=== PATIENT | female | born 1965 | race Caucasian/White ===

== ENCOUNTER 2024-05-08 06:38 | Observation (INO) ==
--- NOTE | 2024-04-10 11:16 | PAT Medication Instructions ---
Medication Instructions Date of Service April 10, 2024 Home Medications acetaminophen 500 mg tablet 500 mg PO Q6H PRN Pain acetaminophen 650 mg tablet,extended release 650 mg PO Q12H PRN Pain baclofen 10 mg tablet 10 mg PO TID PRN muscle spasms estradiol 1 mg tablet 0.25 mg PO QPM famotidine 20 mg tablet 20 mg PO HS omeprazole 20 mg tablet,delayed release 20 mg PO QAM tizanidine 2 mg tablet 2 mg PO HS MEDICATION INSTRUCTIONS: ASK your surgeon for instructions estradiol 1 mg tablet 0.25 mg PO QPM Take morning of surgery With a small sip of water, OTHERWISE NOTHING TO EAT OR DRINK AFTER MIDNIGHT: acetaminophen 500 mg tablet 500 mg PO Q6H PRN Pain acetaminophen 650 mg tablet,extended release 650 mg PO Q12H PRN Pain baclofen 10 mg tablet 10 mg PO TID PRN muscle spasms omeprazole 20 mg tablet,delayed release 20 mg PO QAM Take evening before surgery acetaminophen 500 mg tablet 500 mg PO Q6H PRN Pain acetaminophen 650 mg tablet,extended release 650 mg PO Q12H PRN Pain baclofen 10 mg tablet 10 mg PO TID PRN muscle spasms famotidine 20 mg tablet 20 mg PO HS tizanidine 2 mg tablet 2 mg PO HS Other Notes If you have any questions please call us at [phone] or [phone] or [phone] or [phone]
--- NOTE | 2024-04-24 11:24 | Anesthesiology Consultation ---
Date of Service April 24, 2024 Assessment & Plan (1) Encounter for pre-operative examination: - Check BSG DOS (Hx intermittent episodes of hypoglycemia, diet controlled, episodes occur when fasting- OR made aware. Will recheck BSG level DOS) - Infectious disease screening: Per assessment on 04/24/24- No known recent infectious disease contacts or current infectious disease symptoms. - Cardiology note (03/27/24): "Low cardiac risk.. From a primary care standpoint, okay to proceed with surgery per surgeon protocol" - Cardiology visit (04/05/24): "pt had testing approximately 1 1/2 Years ago and no severe cardiac disease found. Will clear her at low cardiac risk for upcoming neck surgery. pt is a former smoker and has had polyps removed from vocal chords [sic]" - PCP note/visit (04/19/24): "Patient is cleared for scheduled surgery" Chart Review Chart Review: Acceptable Risk for Surgery and Patient seen in Pre Admission Testing Teaching & Discussion Pre-Anesthesia Teaching/Discussion Notes: Instructed NPO after midnight before surgery,except medications with 15 cc of water. Medication instructions provided according to the PAT guidelines. History Surgery Operation Date: 05/08/24 07:45 Proposed Procedures p C5-C7 Anterior Cervical Discectomy and Fusion Spinal Cord Monitoring - Edgar Chacon, Height/Weight Height: 5 ft 1 in Weight: 64.5 kg Allergies Allergy/AdvReac Type Severity Reaction Status Date / Time No Known Allergies Allergy Verified 04/05/24 15:00 Medications Home Medications Medication Instructions Recorded Confirmed Last Taken acetaminophen 500 mg tablet 500 mg PO Q6H PRN Pain 04/05/24 04/05/24 Unknown acetaminophen 650 mg 650 mg PO Q12H PRN Pain 04/05/24 04/05/24 Unknown tablet,extended release baclofen 10 mg tablet 10 mg PO TID PRN muscle spasms 04/05/24 04/05/24 Unknown estradiol 1 mg tablet 0.25 mg PO QPM 04/05/24 04/05/24 Unknown famotidine 20 mg tablet 20 mg PO HS 04/05/24 04/05/24 Unknown omeprazole 20 mg tablet,delayed 20 mg PO QAM 04/05/24 04/05/24 Unknown release tizanidine 2 mg tablet 2 mg PO HS 04/05/24 04/05/24 Unknown Past Medical History Medical History Anxiety and depression Arthritis Escalante's esophagus GERD (gastroesophageal reflux disease) Hiatal hernia History of hypoglycemia Hx intermittent episodes of hypoglycemia Diet controlled, episodes occur when fasting Hx of cancer of uterus Dx 2000 > SHIMA w/BSO Hx of cervical cancer Dx 2000 > SHIMA w/BSO Exercise / Class Metabolic Activity II 4-5 Yardwork/Stairs/Walk up hill Past Surgical History Surgical History History of bilateral tubal ligation History of carpal tunnel surgery of right wrist 01/18/24 History of esophagogastroduodenoscopy (EGD) 01/2024 History of vocal cord polypectomy Hx of colonoscopy Hx of LASIK Hx of total vaginal hysterectomy w/BSO Past Anesthesia History No Family Hx of Anesthesia Complications and Other (Awareness with remote D&C) History of PONV No Hx of PONV and No Hx of Motion Sickness Social History Smoking Status: Former smoker Do You Dip or Chew Tobacco: No Smoking End Date: Quit 1991 Hx Alcohol Use: No Hx Substance Use: Yes substance use type: marijuana (Troches/lotion/creams/inhaled forms daily- Medical card (advised protocol)) Review of Systems Patient denies chest pain, shortness of breath, dyspnea on exertion, fever, chills, cough, wheezing, palpitations. Physical Exam Vital Signs BP 157/92 P 71 TEMP 98.4 SP02 96%RA RESP 18 Physical Full cervical extension range of motion. Full TMJ range of motion. TMD 3 finger breaths Mallampati Score III Dentition: intact, gold crowns (molars) Lungs: clear throughout to auscultation Cardiac: regular rate and rhythm, no murmurs noted Spine: normal Carotid arteries: negative bruit Extremities: no LE edema Lab Results Anesthesia Preop Results Results Anesthesia Widget: WBC 8.73 K/ul (4.8-10.8) 04/24/24 Hgb 13.4 g/dl (12.0-16.0) 04/24/24 Hct 40.2 % (37.0-47.0) 04/24/24 Plt 252 K/uL (130-400) 04/24/24 Na 142 mmol/L (136-145) 04/24/24 K 4.1 mmol/L (3.5-5.1) 04/24/24 Cl 108 mmol/L (98-107) H 04/24/24 CO2 29 mmol/L (21-32) 04/24/24 BUN 18 mg/dl (6-23) 04/24/24 Creat 0.82 mg/dl (0.6-1.2) 04/24/24 Glucose Level 95 mg/dl (70-99(Fasting)) 04/24/24 PT 10.2 Seconds (9.0-12.0) 04/24/24 PTT 27 Seconds (21-31) 04/24/24 INR 0.9 (0.9-1.1) 04/24/24 Urine Color Yellow 04/24/24 Urine Appearance Clear (Clear) 04/24/24 Urine pH 6.5 (4.5-7.5) 04/24/24 Urine Specific [place] 1.017 (1.000-1.030) 04/24/24 Urine Protein Negative (Negative) 04/24/24 Urine Glucose (UA) Negative (Negative) 04/24/24 Urine Ketones Negative (Negative) 04/24/24 Urine Blood Negative (Negative) 04/24/24 Urine Nitrite Negative (Negative) 04/24/24 Urine Bilirubin Negative (Negative) 04/24/24 Urine Urobilinogen Negative (Negative) 04/24/24 Urine Leukocyte Esterase Negative (Negative) 04/24/24 Blood Type O Positive 04/24/24 Antibody Screen NEGATIVE 04/24/24 Testing Electrocardiogram Date: 04/05/24 "EKG: NSR. VR 67 - normal ECG" per cardiology preop visit note where EKG was performed. Chest X-Ray Date: 04/24/24 Findings: + NAD Echocardiogram Date: 09/28/22 EF 50-55%. Mild NM/TI. Trace PI. Normal pulmonary artery pressures. Grade 1 diastolic dysfunction. Mild concentric LVH. Stress Test Date: 09/28/22 10.1 METS. 98% MPHR. ECG change consisted of [address] depression. Arrhythmia noted consisting of rare PVCs. Impression: Negative for the development of angina or ischemic ST changes.
[2024-05-08] MEDS ORDERED: LIDOCAINE 2% 2 ML VIAL/AMP(20MG/ML) INFIL ONE ×2 (06:53)
[2024-05-08] MEDS ORDERED: ROCURONIUM BROMIDE 10 MG/ML 5 ML VIAL IV ONE ×2 (06:53→06:56)
[2024-05-08] MEDS ORDERED: PROPOFOL IV EMULSION 10 MG/ML 20 ML VIAL IV ONE (06:53)
[2024-05-08] MEDS ORDERED: ONDANSETRON INJ 2 MG/ML 2 ML VIAL ONE (06:53)
[2024-05-08] MEDS ORDERED: fentaNYL citrate PF 100 MCG/2 ML VIAL ONE ×2 (06:53→08:13)
[2024-05-08] MEDS ORDERED: DEXAMETHASONE SOD INJ 4 MG/ML VIAL ONE (06:53)
[2024-05-08] MEDS ORDERED: MIDAZOLAM HCL 1 MG/ML 2ML VIAL ONE (06:53)
[2024-05-08] MEDS: LR 15ML/HR IV SCH (07:04)
[2024-05-08] MEDS: CeleBREX 200 MG CAP PO SCH (07:06)
[2024-05-08] MEDS: LR 60ML/HR IV SCH (07:06)
[2024-05-08] MEDS: GABAPENTIN 600 MG DOSE PO SCH (07:06)
[2024-05-08] MEDS: ACETAMINOPHEN 500 MG TAB PO SCH (07:06)
[2024-05-08] MEDS ORDERED: PROMETHAZINE HCL 6.25 MG in SODIUM CHLORIDE 0.9% 50 ML IV PRN (07:35)
[2024-05-08] MEDS ORDERED: DROPERIDOL 5 MG/2 ML VIAL IV PRN (07:35)
[2024-05-08] MEDS ORDERED: ATROPINE SULFATE 0.1 MG/ML 10ML SYR IV PRN (07:35)
[2024-05-08] MEDS ORDERED: ePHEDrine sulfate 50 MG/ML AMP IV PRN (07:35)
--- NOTE | 2024-05-08 07:40 | History & Physical Bridge Note ---
Date of Service May 08, 2024 History & Physical Bridge Note I have examined the patient, reviewed the History & Physical and in the interval since the performance of the History & Physical I have noted the following changes of clinical significance: no changes noted
[2024-05-08] MEDS: SCOPOLAMINE 1 MG/72 HR TDSY PATCH TD ONE (07:41)
--- NOTE | 2024-05-08 07:41 | History & Physical Report ---
Date of Service May 08, 2024 Assessment & Plan (1) Cervical spondylosis with radiculopathy: Plan: C5-C7 anterior cervical discectomy and fusion History of Present Illness Chief Complaint: Neck and arm pain Primary Care Provider: Roberth Mosher This is a 58-year-old female who presents with chronic persistent neck and arm pain after failing course of nonoperative care is here for surgical invention. Allergies Allergy/AdvReac Type Severity Reaction Status Date / Time No Known Allergies Allergy Verified 05/08/24 06:48 Home Medications Medication Instructions Recorded Confirmed Type acetaminophen 500 mg tablet 500 mg PO Q6H PRN Pain 04/05/24 05/08/24 History baclofen 10 mg tablet 10 mg PO TID PRN muscle spasms 04/05/24 05/08/24 History estradiol 1 mg tablet 0.25 mg PO QPM 04/05/24 05/08/24 History famotidine 20 mg tablet 20 mg PO HS 04/05/24 05/08/24 History omeprazole 20 mg tablet,delayed 20 mg PO QAM 04/05/24 05/08/24 History release Past Med/Surg History Problem List (Updated 05/08/24 @ 07:40 by Edgar Chacon DO) Cervical spondylosis with radiculopathy Encounter for pre-operative examination Medical History Anxiety and depression Arthritis Escalante's esophagus GERD (gastroesophageal reflux disease) Hiatal hernia History of hypoglycemia Hx intermittent episodes of hypoglycemia Diet controlled, episodes occur when fasting Hx of cancer of uterus Dx 2000 > SHIMA w/BSO Hx of cervical cancer Dx 2000 > SHIMA w/BSO Surgical History History of bilateral tubal ligation History of carpal tunnel surgery of right wrist 01/18/24 History of esophagogastroduodenoscopy (EGD) 01/2024 History of vocal cord polypectomy Hx of colonoscopy Hx of LASIK Hx of total vaginal hysterectomy w/BSO Social History Smoking Status: Former smoker Smoking End Date: Quit 1991; Second Hand Exposure: No; Do You Dip or Chew Tobacco: No; Tobacco Cessation Education Requested by Patient: No Hx Alcohol Use: No Hx Substance Use: Yes Preferred Language: Turkmen Communication Ability: Effective Flat Examiner Required: No Beliefs That Will Affect Care: None Current Living Situation: Spouse and Family Other Information That Helps Us Care for You: No Feels Safe at Home: Yes Safety Concerns: Feels Safe At This Time Assistive Devices: Glasses Assistive Devices Comment: glasses are prn Physical Exam Physical Exam: Patient is alert and oriented heart regular rhythm lungs clear Results & Data Results & Data Vital Signs (Past 12 Hours) Vital Signs Temp Pulse Resp BP Pulse Ox O2 Del Method 05/08/24 06:50 36.6 C 93 H 20 183/93 H 98 Room Air
[2024-05-08] MEDS: ceFAZolin 2000MG 2,000 MG/15 ML SYR IV SCH (07:51)
[2024-05-08] MEDS ORDERED: SUGAMMADEX SODIUM 200 MG/2 ML VIAL IV ONE (08:16)
[2024-05-08] MEDS: ceFAZolin 330 MG/ML 1 GM VIAL ONE (09:00)
[2024-05-08] MEDS: FLOSEAL HEMOSTATIC MATRIX 10ML TOP ONE (09:01)
--- NOTE | 2024-05-08 09:08 | Operative Report ---
Post Operative Report Pre & Post Diagnosis Operation Date: 05/08/24 07:45 Pre-Op Diagnosis: Same cervical spondylosis with radiculopathy Post-Op Diagnosis: Same I identified the patient and participated in the time-out.: Yes Procedure Operation Date: 05/08/24 07:45 Actual Procedures #1 anterior cervical discectomy with bilateral foraminotomies C5-C6 C6-C7. #2 anterior cervical arthrodesis C5-C6 C6-C7. #3 placement of Spira 7 mm cage filled with Oxyzyme bone graft at C5-C6 C6-C7. #4 application of K2 M plate and screws from C5-C7. Surgeon Edgar Chacon, Psychology Professor Nicolasa Madera Estimated Blood Loss 10 Findings Consistent with Post-Op Diagnosis Specimens None Indications This is a 4-year-old female who presents problems diagnosis with a failed course of nonoperative care she is here for surgical invention. Description of Procedure Patient was met with identified informed consent obtained. Patient was then taken to the operative suite underwent ablation placed in spine position the Madhu table with head Espinal head ordered. All bony prominences well-padded eyes inspected to ensure no external precipice spinal. This point the anterior cervical spine was prepped and draped no sterile fashion. The assistance of fluoroscopy defy the C5 vertebral body and a transverse incision was placed along the right anterior aspect of the cervical spine overlying his region. Blunt dissection with assistance of bipolar cautery as informed down to and exposing the anterior cervical spine from C5-C7. Self-retaining retractors placed. Informed complete discectomy of C5-C6 out to the uncovertebral notch bilaterally. [place] distracting pins utilized to assist in visualization. I removed all posterior annular fibers longitudinal ligament bilateral foraminotomies performed. Endplates burred to subcortical bleeding bone and a 7 mm spiral cage filled with os design bone graft tapped into position. And then proceeded to C6-C7. Again complete discectomy performed out to the uncovertebral and bilaterally. [place] distracting pins again utilized. Removed all posterior annular fibers longitudinal limit bilateral foraminotomies performed. Endplates burred to subcortical bleeding bone and a 7 mm spiral cage filled with os design bone graft tapped in position. Distracting and pressors removed. All anterior osteophytes burred to smooth cortical surface and a K2 M plate and screws applied with the assistance of fluoroscopy. The incision was then copiously irrigated explored to ensure no damage to surrounding structures remaining bleeding. 10 round TIANNA drain inserted. The incision was then closed with 1 Vicryl the fascia 2-0 Vicryl subcutaneously and 4 Monocryl for final skin closure. Steri-Strips sterile dressing placed. Patient waken taken PACU stable condition. Please note spinal cord monitoring was utilized at the procedure no changes noted. Nicolasa Madera was present at the entire surgery while the patient positioning complex portion of the surgery and final skin closure. I attest to the content of the Intraoperative Record and any orders documented therein. Any exceptions are noted below.
[2024-05-08] MEDS: HYDROmorphone INJ 2 MG/ML SYR/VIAL IV PRN (09:34)
[2024-05-08] MEDS: LABETALOL HCL IV 5 MG/ML 20ML IV PRN (09:52)
--- NOTE | 2024-05-08 10:28 | Fluoroscopy Report ---
FL cervical 2-3V CLINICAL HISTORY: C5-C7 ACDF COMPARISON STUDY: No previous studies for comparison. Fluoroscopy time: 6 seconds Ka,r: 0.39 mGy. Number of fluoroscopic images: 2 FINDINGS: Fluoroscopy was provided during C5-C7 anterior discectomy and fusion. Linear radiodensity w ithin the operative bed on initial image is not present on the subsequent image. Endotracheal tube is incidentally noted. IMPRESSION: Fluoroscopy provided during C5-C7 anterior discectomy and fusion. ACT 112: Negative or not required by law. Electronically signed by: Enmanuel Johansen M.D. 05/08/2024 10:27 AM
[2024-05-08] MEDS ORDERED: SOD PHOSPHATE/SOD BIPHOSPHATE ENEMA 132 ML BTL PR PRN (11:04)
[2024-05-08] MEDS ORDERED: hydrOXYzine HCl 25 MG TAB PO PRN (11:04)
[2024-05-08] MEDS ORDERED: bisacodyL 10 MG SUPP PR PRN (11:04)
[2024-05-08] MEDS ORDERED: LORazepam 0.5 MG TAB PO PRN (11:04)
[2024-05-08] MEDS ORDERED: DO NOT ADMINISTER PNEUMOCOCCAL VACCINE PRN (11:04)
[2024-05-08] MEDS ORDERED: MAGNESIUM HYDROXIDE SUSP 30 ML UDC PO PRN (11:04)
[2024-05-08] MEDS ORDERED: dexAMETHasone 8 MG in SYRINGE 0 ML IV PRN (11:04)
[2024-05-08] MEDS ORDERED: ACETAMINOPHEN 500 MG TAB PO PRN (11:04)
[2024-05-08] MEDS ORDERED: DO NOT ADMINISTER FLU VACCINE PRN (11:04)
[2024-05-08] MEDS ORDERED: METOCLOPRAMIDE HCL INJ 5 MG/ML 2 ML VIAL IV PRN (11:04)
[2024-05-08] MEDS ORDERED: ALUMINUM/MAGNESIUM SUSP 30 ML UDC PO PRN (11:04)
[2024-05-08] MEDS ORDERED: LORazepam 2 MG/1 ML VIAL IV PRN (11:04)
[2024-05-08] MEDS ORDERED: NALOXONE HCL 0.4 MG/1 ML VIAL/CARP IV PRN (11:04)
[2024-05-08] MEDS ORDERED: FAMOTIDINE 20 MG TAB PO PRN (11:04)
[2024-05-08] MEDS ORDERED: RACEPINEPHRINE 2.25% NEBU SOLN 0.5 ML VIAL INH PRN (11:04)
[2024-05-08] MEDS ORDERED: diphenhydrAMINE Capsule 25 MG CAP PO PRN (11:04)
[2024-05-08] MEDS ORDERED: ONDANSETRON 4 MG OD TAB PO PRN (11:04)
[2024-05-08] MEDS ORDERED: oxyCODONE HCL IR 5 MG TAB (IMMEDIATE RELEASE) PO PRN (11:04)
[2024-05-08] MEDS: LABETALOL HCL IV 5 MG/ML 20ML IV ONE (11:21)
[2024-05-08] MEDS: SCOPOLAMINE 1 MG/72 HR TDSY PATCH TD STA (11:22)
[2024-05-08] MEDS: ONDANSETRON INJ 2 MG/ML 2 ML VIAL IV PRN (13:12)
[2024-05-08] MEDS: HYDROmorphone INJ 0.5 MG/0.5 ML SYR IV PRN (14:07)
[2024-05-08] MEDS: CHECK SCOPOLAMINE PATCH PLACEMENT SCH (14:18)
[2024-05-08] MEDS: ceFAZolin 1000MG 1,000 MG/7.5 ML SYR IV SCH (14:36)
--- NOTE | 2024-05-08 15:23 | Anesthesiology Progress Note ---
Date of Service May 08, 2024 Anesthesia Post Procedure Vital Signs Vital Signs: Temp Pulse Pulse Pulse Resp BP BP 05/08/24 14:50 36.6 C 61 16 173/100 H 05/08/24 14:35 64 16 05/08/24 12:51 36.6 C 70 16 155/94 H 05/08/24 11:50 36.3 C L 69 14 149/88 H 05/08/24 11:19 36.4 C L 59 L 14 140/83 05/08/24 11:05 66 18 05/08/24 10:50 36.5 C 59 L 14 147/90 H 05/08/24 10:30 65 12 178/88 H 05/08/24 10:20 61 12 161/95 H 05/08/24 10:10 61 15 169/97 H 05/08/24 10:00 62 12 166/94 H 05/08/24 09:52 69 185/100 H 05/08/24 09:50 72 14 185/100 H 05/08/24 09:40 36.5 C 79 12 190/114 H 05/08/24 09:30 77 14 208/103 H 05/08/24 09:24 35.7 C L 83 20 223/115 H 05/08/24 06:50 36.6 C 93 H 20 183/93 H Pulse Ox O2 Del Method O2 Flow Rate 05/08/24 14:50 100 Room Air 05/08/24 14:35 100 Room Air 05/08/24 12:51 100 Room Air 05/08/24 11:50 97 Room Air 05/08/24 11:19 96 Room Air 05/08/24 11:05 89 L Room Air 05/08/24 10:50 93 Room Air 05/08/24 10:30 95 Oxymask 3 05/08/24 10:20 95 Oxymask 3 05/08/24 10:10 95 Room Air 0 05/08/24 10:00 97 Oxymask 4 05/08/24 09:52 05/08/24 09:50 99 Oxymask 4 05/08/24 09:40 98 Oxymask 4 05/08/24 09:30 98 Oxymask 4 05/08/24 09:24 98 Oxymask 8 05/08/24 06:50 98 Room Air Pain Intensity Right Shoulder: Pain Intensity: 6 Neck: Pain Intensity: 2 Transfer of Care Handoff Completed per policy Notes Mental Status: alert / awake / arousable and participated in evaluation Nausea / Vomiting: adequately controlled Pain: adequately controlled Airway Patency, RR, SpO2: stable & adequate BP & HR: stable & adequate Hydration State: stable & adequate Anesthetic Complications: no major complications apparent and Pt Satisfied with anesthetic care
[2024-05-08] MEDS: PROMETHAZINE 12.5 MG/50.5 ML BAG IV PRN (16:25)
[2024-05-08] MEDS: ACETAMINOPHEN 1,000 MG/100 ML VIAL IV PRN (16:52)
[2024-05-08] MEDS: HYDROmorphone INJ 1 MG/ML SYRINGE IV PRN (17:15)
--- NOTE | 2024-05-08 17:21 | Hospitalist Consultation ---
Date of Consultation May 08, 2024 History of Present Illness Attending Physician: Edgar Chacon DO History of Present Illness Prudence is a 58-year-old female with a past medical history of peripheral vascular disease, cervical disc disease who presented for Preop review: Medications: Estradiol daily, baclofen 3 times daily 10 mg as needed, omeprazole 20 mg a.m., famotidine 20 mg daily, tizanidine 2 mg at night as needed. No known drug use Exercise stress test 09/2022: EKG with [address] depression rare PVCs. Negative for angina or ischemic ST changes. Patient was felt to be low risk for surgical intervention with no evidence of CAD or high risk features. History of anxiety History of gemfibrozil 600 mg twice daily Gabapentin 100 mg 3 times daily Duloxetine 30 mg delayed release per 04/19/2024 review Spot BSG within goal of [id number] Preop robs 04/24 without significant abnormalities, creatinine 0.82. No anemia. This operatively with hypertension 149/881 79/118 Allergies Allergy/AdvReac Type Severity Reaction Status Date / Time No Known Allergies Allergy Verified 05/08/24 06:48 Home Medications Medication Instructions Recorded Confirmed Type acetaminophen 500 mg tablet 500 mg PO Q6H PRN Pain 04/05/24 05/08/24 History baclofen 10 mg tablet 10 mg PO TID PRN muscle spasms 04/05/24 05/08/24 History estradiol 1 mg tablet 0.25 mg PO QPM 04/05/24 05/08/24 History famotidine 20 mg tablet 20 mg PO HS 04/05/24 05/08/24 History omeprazole 20 mg tablet,delayed 20 mg PO QAM 04/05/24 05/08/24 History release oxycodone 5 mg tablet 5 mg PO Q6H PRN pain #20 tabs 05/08/24 Rx tramadol 50 mg tablet 50 mg PO Q6H PRN pain, moderate 05/08/24 Rx #30 tabs Patient History Medical History Anxiety and depression Arthritis Escalante's esophagus GERD (gastroesophageal reflux disease) Hiatal hernia History of hypoglycemia Hx intermittent episodes of hypoglycemia Diet controlled, episodes occur when fasting Hx of cancer of uterus Dx 2000 > SHIMA w/BSO Hx of cervical cancer Dx 2000 > SHIMA w/BSO Surgical History History of bilateral tubal ligation History of carpal tunnel surgery of right wrist 01/18/24 History of esophagogastroduodenoscopy (EGD) 01/2024 History of vocal cord polypectomy Hx of colonoscopy Hx of LASIK Hx of total vaginal hysterectomy w/BSO Social History Smoking Status: Former smoker Smoking End Date: Quit 1991; Second Hand Exposure: No; Do You Dip or Chew Tobacco: No; Tobacco Cessation Education Requested by Patient: No Hx Alcohol Use: No Hx Substance Use: Yes Preferred Language: Yoruba Communication Ability: Effective Remote Sensing Technician Required: No Beliefs That Will Affect Care: None Current Living Situation: Spouse and Family Other Information That Helps Us Care for You: No Feels Safe at Home: Yes Safety Concerns: Feels Safe At This Time Assistive Devices: Glasses Assistive Devices Comment: glasses are prn Results & Data Results & Data Vital Signs (Past 12 Hours) Vital Signs Temp Pulse Pulse Pulse Resp BP BP 05/08/24 16:49 36.6 C 86 18 179/118 H 05/08/24 14:50 36.6 C 61 16 173/100 H 05/08/24 14:35 64 16 05/08/24 12:51 36.6 C 70 16 155/94 H 05/08/24 11:50 36.3 C L 69 14 149/88 H 05/08/24 11:19 36.4 C L 59 L 14 140/83 05/08/24 11:05 66 18 05/08/24 10:50 36.5 C 59 L 14 147/90 H 05/08/24 10:30 65 12 178/88 H 05/08/24 10:20 61 12 161/95 H 05/08/24 10:10 61 15 169/97 H 05/08/24 10:00 62 12 166/94 H 05/08/24 09:52 69 185/100 H 05/08/24 09:50 72 14 185/100 H 05/08/24 09:40 36.5 C 79 12 190/114 H 05/08/24 09:30 77 14 208/103 H 05/08/24 09:24 35.7 C L 83 20 223/115 H 05/08/24 06:50 36.6 C 93 H 20 183/93 H Pulse Ox O2 Del Method O2 Flow Rate 05/08/24 16:49 99 Room Air 05/08/24 14:50 100 Room Air 05/08/24 14:35 100 Room Air 05/08/24 12:51 100 Room Air 05/08/24 11:50 97 Room Air 05/08/24 11:19 96 Room Air 05/08/24 11:05 89 L Room Air 05/08/24 10:50 93 Room Air 05/08/24 10:30 95 Oxymask 3 05/08/24 10:20 95 Oxymask 3 05/08/24 10:10 95 Room Air 0 05/08/24 10:00 97 Oxymask 4 05/08/24 09:52 05/08/24 09:50 99 Oxymask 4 05/08/24 09:40 98 Oxymask 4 05/08/24 09:30 98 Oxymask 4 05/08/24 09:24 98 Oxymask 8 05/08/24 06:50 98 Room Air PG Care Time/CCT Total # of Minutes Spent Total Time Spent with Patient: Total time spent is greater than 50% in coordination of care (as documented) at patient's floor/unit and/or counseling patient: Coding
[2024-05-08] MEDS: PROMETHAZINE 12.5 MG/50.5 ML BAG IV STA (17:56)
--- NOTE | 2024-05-08 18:02 | Hospitalist Consultation ---
Date of Consultation May 08, 2024 Assessment & Plan (1) Cervical spondylosis with radiculopathy: (2) Escalante's esophagus: (3) GERD (gastroesophageal reflux disease): Plan Patient is a 58 year old female with past medical history of Cervical Spondylosis with radiculopathy, GERD, Escalante's Esophagus, Hiatal hernia, Anxiety/Depression, Uterine/Cervical cancer s/p hysterectomy 2000 who underwent cervical discectomy with fusion of C5-C7 this AM with Dr. Chacon. Patient developed post op nausea and vomiting and elevated blood pressure. Currently, blood pressure has improved and is currently 159/84 mmHg. She denies any current nausea/vomiting. She last vomited at 2:30 p.m. #Cervical spondylosis with radiculopathy s/p cervical discectomy and fusion 05/08/24 - developed post op N/V- currently asymptomatic. continue IV zofran and promethazine PRN - developed post op elevated blood pressure - improved. asymptomatic. continue close monitoring - continue IV pain control with Tylenol and Dilaudid PRN #Escalante's Esophagus/GERD - on omeprazole 20mg daily at home, last dose 05/07 - initiate treatment with IV pepcid BID and IV protonix BID Supervising Physician Co-Signing Physician Notes Patient was seen and examined independently I discussed the case with Sarah CANNON I reviewed pertinent past medical social family history and also the plan of care and agree with the plan of care. Called urgently to see the patient due to hypertension. Patient was having significant nausea and vomiting. Once the nausea vomiting was controlled with Phenergan intravenously the blood pressure was a better condition. Patient was having reaction to her pain medications. She states that in the past she has done well with tramadol. Examination she has equal bilateral strength upper extremities. She alert and appropriate. Continue to treat medical problems including her opiate induced nausea with multiple antiemetic medications Be sure to have the patient for Pepcid and PPI. Any exceptions will be noted below History of Present Illness Reason for Consultation: Elevated Blood pressure Medical Management Attending Physician: Edgar Chacon, DO History of Present Illness Patient is a 58 year old female with past medical history of Cervical Spondylosis with radiculopathy, GERD, Escalante's Esophagus, Hiatal hernia, Uterine/Cervical cancer s/p hysterectomy 2000 who underwent cervical discectomy with fusion of C5-C7 this AM with Dr. Chacon. Patient developed post op nausea and vomiting and elevated blood pressure. Currently, she is denying any nausea or vomiting. She states that she is last vomited around 2:30 PM. She denies any history of adverse reaction to anesthesia, but does report this as a side effect of pain medications, which she believes caused her symptoms. She is on omeprazole at home, has not taken yet today as she was NPO. In addition to her home meds, she takes elm tree, beet root supplement for general wellness. She additionally denies fevers/chills, headache, vision change, dizziness, lightheadedness, dysphagia, chest pain, sob, cough, abdominal pain, hematemesis, blood in stool or urine, numbness/tingling, weakness, rash/hives.She has no additional complaints/concerns. Allergies Allergy/AdvReac Type Severity Reaction Status Date / Time No Known Allergies Allergy Verified 05/08/24 06:48 Home Medications Medication Instructions Recorded Confirmed Type acetaminophen 500 mg tablet 500 mg PO Q6H PRN Pain 04/05/24 05/08/24 History baclofen 10 mg tablet 10 mg PO TID PRN muscle spasms 04/05/24 05/08/24 History estradiol 1 mg tablet 0.25 mg PO QPM 04/05/24 05/08/24 History famotidine 20 mg tablet 20 mg PO HS 04/05/24 05/08/24 History omeprazole 20 mg tablet,delayed 20 mg PO QAM 04/05/24 05/08/24 History release oxycodone 5 mg tablet 5 mg PO Q6H PRN pain #20 tabs 05/08/24 Rx tramadol 50 mg tablet 50 mg PO Q6H PRN pain, moderate 05/08/24 Rx #30 tabs Patient History Medical History History of hypoglycemia Hx intermittent episodes of hypoglycemia Diet controlled, episodes occur when fasting Arthritis Hx of cancer of uterus Dx 2000 > [facility] w/BSO Hx of cervical cancer Dx 2000 > [facility] w/BSO Anxiety and depression Escalante's esophagus Hiatal hernia GERD (gastroesophageal reflux disease) Surgical History History of carpal tunnel surgery of right wrist 01/18/24 History of bilateral tubal ligation Hx of total vaginal hysterectomy w/BSO History of esophagogastroduodenoscopy (EGD) 01/2024 Hx of colonoscopy History of vocal cord polypectomy Hx of LASIK Social History Smoking Status: Former smoker Smoking End Date: Quit 1991; Second Hand Exposure: No; Do You Dip or Chew Tobacco: No; Tobacco Cessation Education Requested by Patient: No Hx Alcohol Use: No Hx Substance Use: Yes Preferred Language: Bengali Communication Ability: Effective Vocational Education Professional Required: No Beliefs That Will Affect Care: None Current Living Situation: Spouse and Family Other Information That Helps Us Care for You: No Feels Safe at Home: Yes Safety Concerns: Feels Safe At This Time Assistive Devices: Glasses Assistive Devices Comment: glasses are prn Review of Systems Constitutional: see HPI Physical Exam Physical Exam: General: no acute distress; non-toxic appearing; well-nourished; cooperative HEENT: normocephalic, atraumatic; no scleral icterus; PERRLA w/ EOMs intact; vision and hearing grossly intact Neck: supple; no lymphadenopathy; trachea midline Skin: warm, dry without signs of tenting; no cyanosis; no rashes, bruising, lesions, or erythema noted CV: chest wall NTP; RRR; S1/S2 normal; no murmurs/rubs/gallops; pulses intact and symmetric at radial, DP, and PT Lungs: no acute respiratory distress; symmetrical chest wall expansion; clear breath sounds across all lung jeter w/o adventitious sounds; no wheezing ABD: Soft, NTP; BS present; no rebound/guarding; no distention MSK: (+) C collar in place. (+) dressing present anterior C spine. No tics or fasciculations; no edema noted in the LEs b/l, nonerythematous Neuro: A&Ox3; normal mood and affect; fluent speech; no focal deficits; sensation grossly intact in the LEs b/l Results & Data Results & Data Vital Signs (Past 12 Hours) Vital Signs Temperature, heart rate, respiratory rate, blood pressure, oxygen saturation reviewed Temp Pulse Pulse Pulse Resp BP BP 05/08/24 16:49 97.9 F 86 18 179/118 H 05/08/24 14:50 97.9 F 61 16 173/100 H 05/08/24 14:35 64 16 05/08/24 12:51 97.9 F 70 16 155/94 H 05/08/24 11:50 97.3 F L 69 14 149/88 H 05/08/24 11:19 97.5 F L 59 L 14 140/83 05/08/24 11:05 66 18 05/08/24 10:50 97.7 F 59 L 14 147/90 H 05/08/24 10:30 65 12 178/88 H 05/08/24 10:20 61 12 161/95 H 05/08/24 10:10 61 15 169/97 H 05/08/24 10:00 62 12 166/94 H 05/08/24 09:52 69 185/100 H 05/08/24 09:50 72 14 185/100 H 05/08/24 09:40 97.7 F 79 12 190/114 H 05/08/24 09:30 77 14 208/103 H 05/08/24 09:24 96.3 F L 83 20 223/115 H 05/08/24 06:50 97.9 F 93 H 20 183/93 H Pulse Ox O2 Del Method O2 Flow Rate 05/08/24 16:49 99 Room Air 05/08/24 14:50 100 Room Air 05/08/24 14:35 100 Room Air 05/08/24 12:51 100 Room Air 05/08/24 11:50 97 Room Air 05/08/24 11:19 96 Room Air 05/08/24 11:05 89 L Room Air 05/08/24 10:50 93 Room Air 05/08/24 10:30 95 Oxymask 3 05/08/24 10:20 95 Oxymask 3 05/08/24 10:10 95 Room Air 0 05/08/24 10:00 97 Oxymask 4 05/08/24 09:52 05/08/24 09:50 99 Oxymask 4 05/08/24 09:40 98 Oxymask 4 05/08/24 09:30 98 Oxymask 4 05/08/24 09:24 98 Oxymask 8 05/08/24 06:50 98 Room Air Laboratory Results CBC, coagulation studies, BMP, urinalysis reviewed Diagnostic Findings Chest x-ray and cervical spine x-ray reviewed PG Care Time/CCT Total # of Minutes Spent Total Time Spent with Patient: Total time spent is greater than 50% in coordination of care (as documented) at patient's floor/unit and/or counseling patient: Coding Level of Care Code None Diagnoses Cervical spondylosis with radiculopathy M47.22 Escalante's esophagus K22.70 GERD (gastroesophageal reflux disease) K21.9
[2024-05-08] MEDS ORDERED: HYDROmorphone INJ 0.5 MG/0.5 ML SYR IV PRN (18:33)
[2024-05-08] MEDS: FAMOTIDINE 20MG IV PUSH 20 MG/5 ML SYR IV STA (18:37)
--- NOTE | 2024-05-08 18:56 | Billing Data ---
Date of Service May 08, 2024 Coding Level of Care Code 53809 SUB INP/OBS CARE
[2024-05-08] MEDS: traMADol HCL 50 MG TABLET PO PRN (19:22)
[2024-05-08] MEDS: DOCUSATE SODIUM/SENNA 50/8.6MG TAB PO SCH (20:59)
[2024-05-08] MEDS: estradioL 1 MG TAB PO SCH (20:59)
[2024-05-08] MEDS ORDERED: FAMOTIDINE 20 MG TAB PO SCH (21:00)
[2024-05-09] MEDS: POLYETHYLENE (MIRALAX) 17 GM PACK PO SCH (06:11)
[2024-05-09 06:27] LABS: Basophils # (auto) 0.05 K/uL (0.00-0.20); Basophils % (auto) 0.4 %; Eosinophils # (auto) 0.04 K/uL (0.00-0.50); Eosinophils % (auto) 0.3 %; Hematocrit (blood only) 36.6 % (37.0-47.0); Immature Granulocytes # (auto) 0.04 K/uL (0.01-0.20); Immature Granulocytes % (auto) 0.3 %; Lymphocytes # (auto) 3.69 K/uL (1.20-3.40); Mean Corpuscular Hemoglobin 30.9 pg (25.0-34.0); Mean Corpuscular Hgb Conc 32.8 g/dL (32.0-36.0); Mean Corpuscular Volume 94.3 fL (80.0-100.0); Mean Platelet Volume 10.4 fL (9.4-12.4); Monocytes % (auto) 9.5 %; Neutrophils # (auto) 8.54 K/uL (1.40-6.50); Neutrophils % (auto) 62.5 %; Platelet Count 232 K/uL (130-400); RDW Coefficient of Variation 13.9 % (11.5-14.5); RDW Standard Deviation 47.8 fL (36.4-46.3); Red Blood Count 3.88 M/uL (4.20-5.40); White Blood Count 13.66 K/ul (4.8-10.8)
[2024-05-09 06:44] LABS: BUN Creatinine Ratio 17.3 (10-20); Calcium 8.9 mg/dl (8.6-10.3); Creatinine Clr Calc Pharmacy 63.8 ml/min; Potassium 3.8 mmol/L (3.5-5.1)
[2024-05-09] MEDS: PANTOprazole 40 MG TAB PO SCH (07:27)
[2024-05-09] MEDS: dexAMETHasone 6 MG in SYRINGE 0 ML IV SCH (07:27)
[2024-05-09] MEDS: BACLOFEN 10 MG TAB PO PRN (07:27)
[2024-05-09] MEDS: FAMOTIDINE 20MG IV PUSH 20 MG/5 ML SYR IV SCH (07:28)
[2024-05-09 08:20] VITALS: RESP 18
--- NOTE | 2024-05-09 09:32 | Discharge Summary ---
Date of Service May 09, 2024 Admission HPI Per Admitting Provider This is a 58-year-old female who presents with chronic persistent neck and arm pain after failing course of nonoperative care is here for surgical invention. Principal Diagnosis Cervical spondylosis with radiculopathy Discharge Data Allergies Allergy/AdvReac Type Severity Reaction Status Date / Time No Known Allergies Allergy Verified 05/08/24 06:48 Consultations 05/08/24 17:05 Consult Hospitalist Routine Procedures Performed Operation Date: 05/08/24 07:45 Actual Procedures p C5-C7 Anterior Cervical Discectomy and Fusion, Spinal Cord Monitoring(Not Applicable) - Edgar Chacon DO Ordered Studies 05/08/24 [place] cervical 2-3V Routine Hospital Course (1) Cervical spondylosis with radiculopathy: Patient went anterior cervical ketamine fusion trial as well as taken orthopedic for postoperative. Postoperative arm symptoms improved. Distracted testing. Swallowing well. No hoarseness. TIANNA drain decreasing. Simply discharged home. Discharge orders instructions from the chart for further review. Total Time Total Time Spent Total Time Spent (In Minutes): 20 minutes Discharge Plan Discharge Items Patient Disposition: Home - Self-Care Reason For Visit: Cervical Spondylosis, Cervical Disc Disease Discharge Diagnosis: Cervical spondylosis with radiculopathy Activity: As commented below Non-emergency contact: Primary Care Provider Call non-emergency contact if: you have any medication questions Follow-up/Referrals: Roberth Mosher [Primary Care Provider] - Diet: Regular Addtl Attending Provider Instructions: ACTIVITY RECOMMENDATIONS: SELF CARE INSTRUCTIONS AFTER CERVICAL FUSIONS 1. No smoking. Smoking drastically decreases the chance of a solid fusion. 2. No bending, lifting more than 5 pounds, or twisting (roll like a log when turning in bed). 3. You may shower 3 days after surgery. Thoroughly dry wound. Do not soak in the tub. 4. Cervical collar: Must be worn at all times including sleeping. You may remove the brace only to bath, eat and if you are sitting in a recliner. 5. Please walk as much as you can for exercise. Gradually increase the distance that you walk as your endurance increases. 6. You may return to previous diet. SPECIAL CARE INSTRUCTIONS: VERY IMPORTANT TO READ AND REVIEW A. Do not take any anti-inflammatory medications (i.e. Indocin, Advil, Aspirin, Naprosyn, Aleve, Motrin, etc.) as these may inhibit the chance of a solid fusion. Tylenol is okay to take. B. Your surgical incision has been closed with a cosmetic suture under the skin that will dissolve in about 6 weeks. In 14 days, you can use a pair of clean scissors and cut the suture that is left outside of the skin at the ends of your incision. C. Complications are uncommon, but please contact us if you have any signs or symptoms of: 1. wound infection (fever higher than 102.5 degrees F, redness, separation of wound, drainage, or increasing pain from the incision) 2. blood clots in legs (pain, swelling, redness and warmth in legs) 3. urinary tract infection (fever higher than 102.5 degrees, burning upon urination or increased frequency of urination) 4. nerve problems (inability to walk on your toes or heels, numbness, loss of bowel or bladder control) 5. any other symptoms that concern you. D. Please call the office at if you have any concerns or questions about your operation or recovery. MANAGING PAIN AFTER SPINAL SURGERY 1. Narcotic medication is intended for short-term use and will be provided for surgical pain. Surgical pain usually lasts for a period of 4-6 weeks. Narcotic medication includes Percocet, Vicodin, Darvocet, Tylenol #3 or Lortab. 2. Longer-term pain is more appropriately treated with non-narcotic medication such as Tylenol ES. 3. Muscle spasm is not appropriately treated with narcotics. Muscle relaxers such as Soma, Flexeril or Skelaxin can be used along with Tylenol ES. 4. Remember that we all live with some "aches and pains". This is not unusual or uncommon after an injury or as we get older. 5. We will provide appropriate medication within the normal guidelines of their prescribed use. We will also be very cautious and aware of potential abuse and extended duration of patients' medication needs. 6. Please allow 2-3 days to process refills. Prescriptions will not be mailed but must be picked up at the office. FOLLOW UP VISIT: Keep your scheduled follow-up appointment. Any questions, please call the office at . Pending Studies at Discharge: No Stand-Alone Forms: [employer], Smoking Cessation Medications and DC Order Prescriptions: New tramadol 50 mg tablet 50 mg PO Q6H PRN (Reason: pain, moderate) Qty: 30 0RF oxycodone 5 mg tablet 5 mg PO Q6H PRN (Reason: pain) Qty: 20 0RF Continued acetaminophen 500 mg Tablet 500 mg PO Q6H PRN (Reason: Pain) Patient Comments: takes about 3000mg per day famotidine 20 mg Tablet 20 mg PO HS estradiol 1 mg Tablet 0.25 mg PO QPM baclofen 10 mg Tablet 10 mg PO TID PRN (Reason: muscle spasms) omeprazole 20 mg Tablet,Delayed Release (Dr/Ec) 20 mg PO QAM Discharge Orders: Discharge Order (Routine); Ordered 05/09/24 Ordered By: Edgar Chacon Admission Data Admit Date/Time: 05/08/24 09:11 Attending Provider: Edgar Chacon Admit Provider: Edgar Chacon Primary Care Provider: Roberth Mosher Other Providers: [place]ble [place]
[2024-05-09 12:05] VITALS: PULSE 74; TEMP 98.2; O2SAT 98
--- NOTE | 2024-05-09 12:55 | Hospitalist Progress Note ---
Date of Service May 09, 2024 Assessment & Plan (1) Cervical spondylosis with radiculopathy: (2) Escalante's esophagus: (3) GERD (gastroesophageal reflux disease): Plan Patient is a 58 year old female with past medical history of Cervical Spondylosis with radiculopathy, GERD, Escalante's Esophagus, Hiatal hernia, Anxiety/Depression, Uterine/Cervical cancer s/p hysterectomy 2000 who underwent cervical discectomy with fusion of C5-C7 this AM with Dr. Chacon. Patient developed post op nausea and vomiting and elevated blood pressure. Currently, blood pressure has improved and is currently 159/84 mmHg. She denies any current nausea/vomiting. She last vomited at 2:30 p.m. 05/08/24. Labs were WNL with exception of leukocytosis, likely from steroids. She is afebrile and asymptomatic. She is eating and drinking well. #Cervical spondylosis with radiculopathy s/p cervical discectomy and fusion 05/08/24 - developed post op N/V- no further episodes, remains asymptomatic. - developed post op elevated blood pressure - improved. asymptomatic. recommend outpatient PCP follow up - pain medication PRN #Escalante's Esophagus/GERD -continue PPI and pepcid PRN I believe patient is medically stable for discharge. Admission and Anticipated Discharge Date Admission Date: May 08, 2024 Supervising Physician Co-Signing Physician Notes The patient was not seen by me. The chart was reviewed. Case discussed with INGRID Webber. Agree with assessment and plan Subjective Patient is a 58 year old female who is currently admitted for post op management after undergoing cervical dissectomy and dusion of C5-C7 05/08/24. She developed elevated blood pressure along with post op N/V. She was initiated on IV protonix and pepcid, along with PRN pain medications. Labs were drawn this AM, revealed leukocytosis with WBC of 13. She is on IV steroids, likely reactive. She is afebrile, currently denies headache, vision change, dizziness/lightheadedness, chest pain, sob, cough, abdominal pain, N/V/D/C, heartburn, reflux/r egurgitation,blood in stool or urine, melena, dysuria, numbness/tingling, weakness. She reports neck pain on right side that radiates to shoulder that has been present before surgery. Her pain is controlled with medications. She is eating and drinking well, no elimination concerns. She states she is feeling good and ready to go home. She does not currently have a PCP, has a provider that she will be contacting to establish care and for hospital f/u. She has no additional complaints/concerns. Review of Systems Review of Systems: see HPI Physical Exam Physical Exam: General: no acute distress; non-toxic appearing; well-nourished; cooperative HEENT: normocephalic, atraumatic; no scleral icterus; PERRLA w/ EOMs intact; vision and hearing grossly intact Neck: supple; no lymphadenopathy; trachea midline Skin: warm, dry without signs of tenting; no cyanosis; no rashes, bruising, lesions, or erythema noted CV: chest wall NTP; RRR; S1/S2 normal; no murmurs/rubs/gallops; pulses intact and symmetric at radial, DP, and PT Lungs: no acute respiratory distress; symmetrical chest wall expansion; clear breath sounds across all lung jeter w/o adventitious sounds; no wheezing ABD: Soft, NTP; BS present; no rebound/guarding; no distention MSK: (+) C collar in place. (+) dressing present anterior C spine. No tics or fasciculations; no edema noted in the LEs b/l, nonerythematous Neuro: A&Ox3; normal mood and affect; fluent speech; no focal deficits; sensation grossly intact in the LEs b/l Results & Data Results & Data Vital Signs (Past 12 Hours) Vital Signs Temperature, respiratory rate, blood pressure, oxygen saturation saturations reviewed Temp Pulse Pulse Resp BP Pulse Ox O2 Del Method 05/09/24 11:59 98.2 F 74 18 168/113 H 98 Room Air 05/09/24 07:45 80 18 96 Room Air 05/09/24 07:10 97.9 F 75 16 158/95 H 98 Room Air 05/09/24 04:52 98.1 F 70 16 164/88 H 98 Room Air 05/09/24 03:00 68 18 99 Room Air 05/09/24 02:50 98.1 F 80 16 162/86 H 94 Room Air 05/09/24 00:50 98.1 F 76 16 148/86 H 95 Room Air Laboratory Results CBC, BMP reviewed. PG Care Time/CCT Total # of Minutes Spent Total Time Spent with Patient: Total time spent is greater than 50% in coordination of care (as documented) at patient's floor/unit and/or counseling patient: Coding Level of Care Code None Diagnoses Cervical spondylosis with radiculopathy M47.22 Escalante's esophagus K22.70 GERD (gastroesophageal reflux disease) K21.9
[2024-05-09 13:49] VITALS: BP 168/114
== END 2024-05-09 13:31 | disposition home or self-care (01) ==
LOC: ASU 06:38 → 3E 06:38